=== PATIENT | female | born 2000 | race Caucasian/White ===

== ENCOUNTER 2023-05-05 16:07 | Observation (INO) | payer OTHER ==
[~2023-05-05] VITALS: Ht 149.9 cm; Wt 59.0 kg
[2023-05-05] MEDS ORDERED: PNV91TAB8 PO (16:18)
[2023-05-05 16:29] VITALS: BP 106/61
[2023-05-05 16:48] LABS: BASOPHILS % (AUTO) 0.2 % (0.0-2.0); EOSINOPHILS # (AUTO) 0.1 K/uL (0-0.4); EOSINOPHILS % (AUTO) 0.8 % (0.0-4.0); HEMATOCRIT 27.3 % (36-48); HEMOGLOBIN 9.1 g/dL (12.0-16.0); LYMPHOCYTES # (AUTO) 1.9 K/uL (2.5-16.5); LYMPHOCYTES % (AUTO) 13.1 % (20.5-51.1); MEAN CORPUSCULAR HEMOGLOBIN 28 pg (27-31); MEAN CORPUSCULAR HGB CONC 33 g/dL (33-37); MEAN CORPUSCULAR VOLUME 83.7 fL (80-94); MONOCYTES # (AUTO) 1.1 K/uL (0.8-1.0); MONOCYTES % (AUTO) 7.7 % (1.7-9.3); NEUTROPHILS # (AUTO) 11.2 K/uL (1.8-7.7); NEUTROPHILS % (AUTO) 78.2 % (42.2-75.2); PLATELET COUNT (AUTO) 369 K/uL (140-450); RED BLOOD CELL COUNT(AUTO) 3.27 MIL/uL (4.20-5.40); RED CELL DISTRIBUTION WIDTH 12.7 % (11.6-13.7); WHITE BLOOD COUNT (AUTO) 14.3 K/uL (4.5-11.0)
[2023-05-05 16:49] LABS: APPEARANCE,URINE CLEAR (CLEAR); BILIRUBIN,URINE NEGATIVE (NEGATIVE); BLOOD, URINE NEGATIVE (NEGATIVE); COLOR,URINE YELLOW (YELLOW); LEUKOCYTE ESTERASE ,URINE 1+ (NEGATIVE); NITRITE, URINE POSITIVE (NEGATIVE); UGLUCOSE NEGATIVE (NEGATIVE)
[2023-05-05 17:29] LABS: RBC,URINE 0-5 /HPF (0-5)
== END 2023-05-05 18:36 | disposition home or self-care (01) ==
LOC: MLD 16:07
PROVIDERS: ADMIT Obstetrics & Gynecology; ATTEND Obstetrics & Gynecology
DX: Z34.83 Encounter for supervision of other normal pregnancy, third trimester (principal); Z3A.30 30 weeks gestation of pregnancy
CPT/HCPCS: 36415; 59025; 81001; 85025; 86886; 86900; 86901; 87086; 87340; 96372; G0378; G0379; J2790

== ENCOUNTER 2023-07-14 13:49 | Inpatient (IN) | payer OTHER ==
[~2023-07-14] VITALS: Ht 149.9 cm; Wt 64.9 kg
[~2023-07-14 13:49] MED LIST: PNV91TAB8 PO
[2023-07-14] MEDS ORDERED: OXYTOCIN 20 UNITS in LACTATED RINGERS 1,000 ML IV SCH (14:20)
[2023-07-14] MEDS ORDERED: CARBOPROST 250 MCG/ML AMP IM PRN (14:20)
[2023-07-14] MEDS ORDERED: METHYLERGONOVINE 0.2 MG/ML AMP IM PRN (14:20)
[2023-07-14] MEDS ORDERED: ONDANSETRON 4 MG/2 ML VIAL IVP PRN (14:20)
[2023-07-14] MEDS ORDERED: MISOPROSTOL 25 MCG TAB VG SCH (14:20)
[2023-07-14] MEDS ORDERED: MORPHINE SULFATE 10 MG/ML VIAL IVP PRN (14:20)
[2023-07-14 15:22] LABS: BASOPHILS % (AUTO) 0.2 % (0.0-2.0); EOSINOPHILS # (AUTO) 0.1 K/uL (0-0.4); EOSINOPHILS % (AUTO) 0.9 % (0.0-4.0); HEMATOCRIT 28.3 % (36-48); HEMOGLOBIN 9.2 g/dL (12.0-16.0); LYMPHOCYTES # (AUTO) 1.5 K/uL (2.5-16.5); LYMPHOCYTES % (AUTO) 15.3 % (20.5-51.1); MEAN CORPUSCULAR HEMOGLOBIN 23 pg (27-31); MEAN CORPUSCULAR HGB CONC 33 g/dL (33-37); MONOCYTES # (AUTO) 0.8 K/uL (0.8-1.0); MONOCYTES % (AUTO) 8.5 % (1.7-9.3); NEUTROPHILS # (AUTO) 7.1 K/uL (1.8-7.7); NEUTROPHILS % (AUTO) 75.1 % (42.2-75.2); PLATELET COUNT (AUTO) 286 K/uL (140-450); RED BLOOD CELL COUNT(AUTO) 3.93 MIL/uL (4.20-5.40); RED CELL DISTRIBUTION WIDTH 17.2 % (11.6-13.7); WHITE BLOOD COUNT (AUTO) 9.5 K/uL (4.5-11.0)
[2023-07-14] MEDS: LACTATED RINGERS 1,000 ML IV SCH ×2 (15:24→22:53)
[2023-07-14 15:25] LABS: APPEARANCE,URINE CLEAR (CLEAR); BILIRUBIN,URINE NEGATIVE (NEGATIVE); BLOOD, URINE NEGATIVE (NEGATIVE); COLOR,URINE YELLOW (YELLOW); LEUKOCYTE ESTERASE ,URINE NEGATIVE (NEGATIVE); NITRITE, URINE NEGATIVE (NEGATIVE); PROTEIN,URINE TRACE (NEGATIVE); UGLUCOSE NEGATIVE (NEGATIVE)
[2023-07-14 15:31] VITALS: BP 123/83; PULSE 106; RESP 18; TEMP 98.5
[2023-07-14 15:39] LABS: INR 0.82 (0.8-1.2); PARTIAL THROMBOPLASTIN TIME 25.1 secs (22-35.6); PROTHROMBIN TIME 8.7 secs (10.8-13.4)
[2023-07-14 15:40] LABS: ALBUMIN 2.5 g/dL (3.4-5.0); ANION GAP 13.7 (8-16); CALCIUM 8.8 mg/dL (8.5-10.1); CARBON DIOXIDE 22.5 mmol/L (21-32); CREATININE 0.7 mg/dL (0.6-1.3); POTASSIUM 4.2 mmol/L (3.5-5.1); TOTAL BILIRUBIN 0.4 mg/dL (0.0-1.0); TOTAL PROTEIN, SERUM 6.9 g/dL (6.4-8.2)
[2023-07-14 15:48] LABS: HIV RAPID SCREEN NON-REACTIVE (NON REACTIV)
[2023-07-14] MEDS ORDERED: MISOPROSTOL 25 MCG TAB ONE (17:37)
[2023-07-14] MEDS ORDERED: MISOPROSTOL 25 MCG TAB VG PRN (19:00)
[2023-07-15] MEDS: LACTATED RINGERS 1,000 ML IV SCH ×3 (06:53→17:56)
[2023-07-15] MEDS ORDERED: OXYTOCIN 20 UNITS/LR PREMIX 1,000 ML IV ONE (09:24)
[2023-07-15 11:51] LABS: RAPID PLASMA REAGIN NON-REACTIVE (Non Reactiv)
[2023-07-15] MEDS ORDERED: ROPIVACAINE 0.2%/NS PREMIX 200 ML EPI ONE (17:43)
[2023-07-15] MEDS ORDERED: ROPIVACAINE 0.2%/NS PREMIX 100 ML EPI SCH (17:50)
[2023-07-15] MEDS ORDERED: BENZOCAINE/MENTHOL 20%-0.5% 60 GM CAN TP PRN (23:45)
[2023-07-15] MEDS ORDERED: OXYTOCIN 10 UNITS/ML VIAL IM PRN (23:45)
[2023-07-15] MEDS ORDERED: SIMETHICONE 80 MG TAB.CHEW PO PRN (23:45)
[2023-07-15] MEDS ORDERED: IBUPROFEN 800 MG TAB PO PRN (23:45)
[2023-07-15] MEDS ORDERED: METHYLERGONOVINE 0.2 MG/ML AMP IM PRN (23:45)
[2023-07-15] MEDS ORDERED: HYDROcodone/APAP 5/325 MG 1 TAB TAB PO PRN ×2 (23:45)
[2023-07-15] MEDS ORDERED: IBUPROFEN 600 MG TAB PO PRN (23:45)
[2023-07-15] MEDS ORDERED: METHYLERGONOVINE 0.2 MG TAB PO PRN (23:45)
[2023-07-15] MEDS ORDERED: MEASLES, MUMPS, AND RUBELLA 1 VIAL SQVAC ONE (23:45)
[2023-07-15] MEDS ORDERED: bisacodyL 5 MG TABEC PO PRN (23:45)
[2023-07-16 08:38] LABS: HEMATOCRIT 21.5 % (36-48)
[2023-07-16] MEDS: DOCUSATE SODIUM 100 MG GELCAP PO PRN ×2 (08:43→20:46)
[2023-07-16 08:54] LABS: HEMOGLOBIN 6.8 g/dL (12.0-16.0)
[2023-07-16] MEDS ORDERED: CAMERA MC ONE (11:19)
[2023-07-17 05:41] LABS: HEMATOCRIT 21.6 % (36-48)
[2023-07-17 05:44] LABS: HEMOGLOBIN 6.8 g/dL (12.0-16.0)
== END 2023-07-17 14:41 | disposition home or self-care (01) | DRG 560 ==
LOC: MLD 13:49 → MFCC 07-16 02:45
PROVIDERS: ADMIT Obstetrics & Gynecology; ATTEND Obstetrics & Gynecology
PROC: 10E0XZZ Delivery of Products of Conception, External Approach (ICD-10-PCS; principal; 2023-07-15)
PROC: 0KQM0ZZ Repair Perineum Muscle, Open Approach (ICD-10-PCS; 2023-07-15)
PROC: 3E0R3BZ Introduction of Anesthetic Agent into Spinal Canal, Percutaneous Approach (ICD-10-PCS; 2023-07-15)
PROC: 00HU33Z Insertion of Infusion Device into Spinal Canal, Percutaneous Approach (ICD-10-PCS; 2023-07-15)
PROC: 3E0334Z Introduction of Serum, Toxoid and Vaccine into Peripheral Vein, Percutaneous Approach (ICD-10-PCS; 2023-07-15)
PROC: 30233S1 Transfusion of Nonautologous Globulin into Peripheral Vein, Percutaneous Approach (ICD-10-PCS; 2023-07-15)
DX: O48.0 Post-term pregnancy (principal); Z37.0 Single live birth; D62 Acute posthemorrhagic anemia; O69.81X0 Labor and delivery complicated by cord around neck, without compression, not applicable or unspecified; O70.1 Second degree perineal laceration during delivery; Z3A.40 40 weeks gestation of pregnancy; Z20.822 Contact with and (suspected) exposure to COVID-19
CPT/HCPCS: 36415; 59200; 59409; 76815; 80053; 81003; 85018; 85025; 85610; 85730; 86592; 86762; 86850; 86870; 86886; 86900; 86901; 86920; 87340; J2590; J2790; J2795; J7120; Q0092